=== PATIENT | female | born 1960 | race Caucasian/White ===

== ENCOUNTER 2020-10-08 08:53 | Outpatient (CLI) | payer SELFPAY ==
--- NOTE | ~2020-10-08 | MR_ITS ---
EXAMINATION: MR brain/brain stem wo/w con DATE: 10/08/2020 11:18 INDICATION: Papilledema. TECHNIQUE: Magnetic resonance imaging (MRI) of the brain and brainstem was performed without and with 17 mL MultiHance intravenous contrast. Sequences included sagittal and axial T1-weighted FSE, axial diffusion-weighted FS EPI, axial T2*-weighted GRE, axial T2-weighted FLAIR Propeller, and axial T2-we ighted Propeller. Postcontrast sequences included axial and coronal T1-weighted FSE. Apparent diffusi on coefficient (ADC) maps were created. COMPARISON: None. FINDINGS: There are scattered areas of nonspecific increased T2-weighted signal intensity in the cere bral white matter, which is within normal limits for the patient's age. There is no intracranial hemo rrhage, acute infarction, or abnormal intracranial mass lesion. The ventricles are normal in size. Th e orbits are normal. The mastoid air cells are normal. The paranasal sinuses are clear. IMPRESSION: 1. Normal aging brain. Reviewed, dictated and finalized at location A. IMPRESSION: 1. Normal aging brain.
[2020-10-08 10:51] LABS: Estimated Glomerular Filt Rate 57
== END 2020-10-08 08:54 | disposition home or self-care (01) ==
PROVIDERS: PCP Physician Assistant
DX: H47.10 Unspecified papilledema (principal)
CPT/HCPCS: 70553; A9577

== ENCOUNTER 2020-10-15 08:39 | Outpatient (CLI) | payer OTHER, SELFPAY ==
--- NOTE | ~2020-10-15 | MM_ITS ---
EXAMINATION: MM screening [place] [facility] w [facility] HISTORY: Screening TECHNIQUE: Craniocaudal and mediolateral oblique 3-D tomosynthesis images were obtained and synthetic 2-D images were generated. CAD analysis was submitted and interpreted. COMPARISON: Comparison to multiple prior studies sequentially, with oldest reviewed study dated 11/22. BREAST PARENCHYMAL COMPOSITION: There are scattered areas of fibroglandular density. FINDINGS: There is no evidence of suspicious mass, calcification, or architectural distortion to sugg est malignancy in either breast. There has been no suspicious interval change. IMPRESSION: 1. No mammographic evidence of malignancy. 2. Recommend routine screening mammography in one year. BI-RADS Category 1: Negative Reviewed, dictated and finalized at location A.
== END 2020-10-15 08:40 | disposition home or self-care (01) ==
LOC: ANHIMG 08:42
PROVIDERS: PCP Physician Assistant; Visit Provider Physician Assistant
DX: Z12.31 Encounter for screening mammogram for malignant neoplasm of breast (principal)
CPT/HCPCS: 77063; 77067

== ENCOUNTER 2021-12-19 09:28 | Outpatient (CLI) | payer OTHER, SELFPAY ==
--- NOTE | ~2021-12-19 | MM_ITS ---
EXAMINATION: MM screening [place] [facility] w [facility] HISTORY: Screening TECHNIQUE: Craniocaudal and mediolateral oblique 3-D tomosynthesis images were obtained and synthetic 2-D images were generated. CAD analysis was submitted and interpreted. COMPARISON: Comparison to multiple prior studies sequentially, with oldest reviewed study dated 05/2014. BREAST PARENCHYMAL COMPOSITION: 05/05/2014 FINDINGS: Breast composed of scattered areas of fibroglandular density. There is no evidence of suspi cious mass, calcification, or architectural distortion to suggest malignancy in either breast. There has been no suspicious interval change. IMPRESSION: 1. No mammographic evidence of malignancy. 2. Recommend routine screening mammography in one year. BI-RADS Category 1: Negative Reviewed, dictated and finalized at location A.
== END 2021-12-19 09:29 | disposition home or self-care (01) ==
LOC: ANHIMG 09:31
PROVIDERS: PCP Physician Assistant; Visit Provider Physician Assistant
DX: Z12.31 Encounter for screening mammogram for malignant neoplasm of breast (principal)
CPT/HCPCS: 77063; 77067

== ENCOUNTER 2022-09-18 10:47 | Emergency (ER) | payer SELFPAY ==
[2022-09-18 11:03] VITALS: BP 134/85; PULSE 75; RESP 16; TEMP 36.2; O2SAT 100
--- NOTE | 2022-09-18 11:34 | ED.SKABFB ---
HPI - Skin/Abscess/Foreign Bdy General Chief complaint: Skin/Abscess/Foreign Body Stated complaint: Poison whitney from waist up Time Seen by Provider: 09/18/22 11:34 Source: patient, RN notes reviewed and old records reviewed Mode of arrival: ambulatory Limitations: no limitations History of Present Illness HPI narrative: 62-year-old female who presents to [facility] with complaints of rash noted to her bilateral forearms, to her chest, abdomen, and now is spreading to face and ears.Patient reports that rash is very itchy, denies any pain and denies any shortness of breath or any difficulty with her swallowing. Patient reports that she had some Prednisone at home and she took 30mg dose the past 2 days with none taken today.Patient reports concern since rash is spreading to her face and ears. MD complaint: rash Onset (ago): day(s) (4) Location: generalized (upper body and face and ears) Quality: pruritic Treatments prior to arrival: other (took prednisone 30 mg X 2 days) Related Data Home Medications Medication Instructions Recorded Confirmed levothyroxine 88 mcg tablet 88 mcg PO DAILY 09/18/22 09/18/22 Allergies Allergy/AdvReac Type Severity Reaction Status Date / Time No Known Allergies Allergy Unknown Verified 09/18/22 11:13 Review of Systems Review of Systems: CONSTITUTIONAL: Denies fever, chills, or sweats. CARDIOVASCULAR: Denies chest pain, palpitations, or edema. RESPIRATORY: Denies cough or dyspnea. SKIN: Reports rash to bilateral forearms, abdomen, chest, face and ears which is spreading and itchy,known contact with poison whitney MUSCULOSKELETAL: Denies joint pain or myalgia. NEUROLOGIC: Denies headache, numbness, or weakness. All systems reviewed & are unremarkable except as noted in HPI and below [facility] Past Medical History Medical History (Updated 09/19/22 @ 00:02 by Garry Stern) Hypothyroid Surgical History Surgical History (Updated 09/19/22 @ 13:26 by Magi Urbina NP) H/O thyroidectomy Family History Family History Mother Diabetes mellitus Father Asthma Social History Social History (Updated 09/19/22 @ 13:26 by Magi Urbina NP) Smoking status: Never smoker Alcohol intake: never Substance use: never Living arrangements: with family Gender identity (if verbalized by the patient): Female Comments At time of signature, agree with nursing past medical, surgical, social and family history. There is no relevant family history pertinent to the presenting complaint Exam Narrative: GENERAL: Well-appearing, well-nourished, and in no acute distress. HEAD: Normocephalic, atraumatic. EYES: PERRLA, conjunctivae clear, and EOMI. ENT: Mucous membranes moist. Oropharynx without edema, erythema or lesions. NECK: Supple. No lymphadenopathy CHEST: Clear to auscultation. No respiratory distress.SAO2 100% on room air HEART: Regular rate and rhythm. SKIN: Warm, dry.? Patches of red scattered rash noted to bilateral forearms, chest abdomen face and also on ears which is itchy, no exudate noted NEURO:? Alert and oriented x3. PSYCH: Normal mood and affect Course Course Emergency Course: Patient is aware of diagnosis, understands and agrees to treatment plan.? Anticipatory guidance given.? Patient agrees to follow-up as directed and is aware of reasons to seek care at the emergency department. Portions of this record may have been created with voice recognition software Level of Care: Express Care Visit Vital Signs Vital signs: Vital Signs Temperature 36.2 C L 09/18/22 11:03 Pulse Rate 75 09/18/22 11:03 Respiratory Rate 16 09/18/22 11:03 Blood Pressure 134/85 09/18/22 11:03 Pulse Oximetry 100 09/18/22 11:03 Temperature 36.2 C L 09/18/22 11:03 Pulse Rate 75 09/18/22 11:03 Respiratory Rate 16 09/18/22 11:03 Blood Pressure 134/85 09/18/22 11:03 Pulse Oxime
[2022-09-18] MEDS: methylPREDNISolone ACETATE 80 MG/ML VIAL IM (11:48)
== END 2022-09-18 12:33 | disposition home or self-care (01) ==
PROVIDERS: Emergency Provider Registered Nurse
DX: L25.5 Unspecified contact dermatitis due to plants, except food (principal); E89.0 Postprocedural hypothyroidism
CPT/HCPCS: 96372; 99213; G0463; J1040

== ENCOUNTER 2023-02-07 08:26 | Outpatient (CLI) | payer OTHER, SELFPAY ==
--- NOTE | ~2023-02-07 | MM_ITS ---
EXAMINATION: MM screening [facility] BI w miracle HISTORY: Screening mammogram TECHNIQUE: Craniocaudal and mediolateral oblique 3-D tomosynthesis images were obtained and synthetic 2-D images were generated. CAD analysis was submitted and interpreted. COMPARISON: 12/19/2021, 10/15/2020, 11/28/2018, 07/04/2016 BREAST PARENCHYMAL COMPOSITION:There are scattered areas of fibroglandular density. FINDINGS: No suspicious mass, calcification, or architectural distortion are identified in either katrina ast to suggest malignancy. There has been no suspicious interval change. IMPRESSION: No mammographic evidence of malignancy. Recommend routine screening mammography in one year. BI-RADS Category 1: Negative Reviewed, dictated and finalized at location . [employer]
== END 2023-02-07 08:27 | disposition home or self-care (01) ==
LOC: ANHIMG 08:30
PROVIDERS: PCP Physician Assistant; Visit Provider Physician Assistant
DX: Z12.31 Encounter for screening mammogram for malignant neoplasm of breast (principal)
CPT/HCPCS: 77063; 77067

== ENCOUNTER 2024-03-13 07:34 | Outpatient (CLI) | payer OTHER, SELFPAY ==
--- NOTE | ~2024-03-13 | MM_ITS ---
EXAMINATION: MM screening [place] [facility] w [facility] HISTORY: Screening TECHNIQUE: Craniocaudal and mediolateral oblique 3-D tomosynthesis images were obtained and synthetic 2-D images were generated. CAD analysis was submitted and interpreted. COMPARISON: Comparison to multiple prior studies sequentially, with oldest reviewed study dated 04/2016. BREAST PARENCHYMAL COMPOSITION: Not dense: There are scattered areas of fibroglandular density. FINDINGS: There is no evidence of suspicious mass, calcification, or architectural distortion to sugg est malignancy in either breast. There has been no suspicious interval change. IMPRESSION: 1. No mammographic evidence of malignancy. 2. Recommend routine screening mammography in one year. BI-RADS Category 1: Negative Reviewed, dictated and finalized at location B. [employer]
== END 2024-03-13 07:35 | disposition home or self-care (01) ==
PROVIDERS: PCP Physician Assistant; Visit Provider Physician Assistant
DX: Z12.31 Encounter for screening mammogram for malignant neoplasm of breast (principal)
CPT/HCPCS: 77063; 77067